=== PATIENT | female | born 1990 | race American Indian/Alaskan Native ===

== ENCOUNTER 2018-07-12 14:13 | Observation (INO) | payer OTHER ==
--- NOTE | 2018-07-12 15:32 | ED PDOC ---
Arrival/HPI - General Chief Complaint: Upper Extremity Problem/Injury Time Seen by Provider: 07/12/18 14:45 Historian: Patient - History of Present Illness Narrative History of Present Illness (Text): 07/12/18 15:29 28yr old female presents today with left forearm pain/erythema and swelling. pt was sent in from urgent care for further evaluation. pt denies fever/chills. pt states yesterday morning she noticed a small area of erythema that has increased in the past 24 hours. pt states she now has swelling along the entire forearm. pt is c/o pain along forearm. pt denies fever/chills. denies trauma or injury. pt states she tried benadryl at home without improvement. no medications taken for pain at home. no other complaints. Past Medical History - Provider Review Nursing Documentation Reviewed: Yes - Travel History Have you recently traveled outside [place] w/in the past 3 mons?: No - Infectious Disease Hx of Infectious Diseases: None - Pulmonary Hx Asthma: Yes - Psychiatric Hx Substance Use: No - Anesthesia Hx Anesthesia: No Hx Anesthesia Reactions: No Hx Malignant Hyperthermia: No Family/Social History - Physician Review Nursing Documentation Reviewed: Yes Family/Social History: Unknown Family HX Smoking Status: Never Smoked Hx Alcohol Use: Yes Frequency of alcohol use: Socially Hx Substance Use: No Allergies/Home Meds Allergies/Adverse Reactions: Allergies latex Adverse Reaction (Verified 07/12/18 14:52) ANGIOEDEMA promethazine [From Phenergan] Adverse Reaction (Verified 07/12/18 14:53) SHORTNESS OF BREATH Sulfa (Sulfonamide Antibiotics) Adverse Reaction (Verified 07/12/18 14:52) ANGIOEDEMA latex Adverse Reaction (Uncoded 07/12/18 14:52) ANGIOEDEMA Home Medications: Home Meds Medication Instructions Recorded Confirmed Lamotrigine [Lamictal Xr] 1 tab PO DAILY 07/12/18 07/12/18 Review of Systems - Review of Systems Constitutional: absent: Fatigue, Fevers Respiratory: absent: SOB, Cough Cardiovascular: absent: Chest Pain, Palpitations Gastrointestinal: absent: Abdominal Pain, Nausea, Vomiting Musculoskeletal: Arthralgias Skin: Rash, Cellulitis Neurological: absent: Headache, Dizziness Psychiatric: absent: Anxiety, Depression Physical Exam Vital Signs Reviewed: Yes Vital Signs Temp Pulse Resp BP Pulse Ox 07/12/18 14:46 98.7 F 95 H 19 119/80 100 Temperature: Afebrile Blood Pressure: Normal Pulse: Regular Respiratory Rate: Normal Appearance: Positive for: Well-Appearing, Non-Toxic, Comfortable Pain Distress: None Mental Status: Positive for: Alert and Oriented X 3 - Systems Exam Head: Present: Atraumatic Mouth: Present: Moist Mucous Membranes Neck: Present: Normal Range of Motion Respiratory/Chest: Present: Clear to Auscultation, Good Air Exchange. No: Respiratory Distress, Accessory Muscle Use Cardiovascular: Present: Regular Rate and Rhythm, Normal S1, S2. No: Murmurs Upper Extremity: Present: Normal ROM, NORMAL PULSES, Tenderness (left forearm; there is erythema noted to the volar and medial aspect of the proximal forearm and distal humerus. full rom of hand, wrist, elbow. sensation and distal pulses intact. cap refill <2. ), Swelling, Erythema (+ warmth and erythema), Neurovascularly Intact, Capillary Refill < 2s Neurological: Present: GCS=15 Skin: Present: Warm, Dry Psychiatric: Present: Alert, Oriented x 3 Medical Decision Making ED Course and Treatment: 07/12/18 15:39 28yr old female with worsening cellulitis to left forearm now with edema to entire forearm. pt was seen and evaluated by dr. yanes cbc: wnl cmp: wnl blood cultures pending xray left forearm; no fracture, duplex left arm; no dvt will start zosyn and admit to med/surg case discussed with dr. pickering; accepts admission impression; cellulitis, arm admit to med/surg - Lab Interpretations Lab Results: 07/12/18 16:26 07/12/18 16:26 Lab Results 07/12/18 16:26: WBC 8.0, RBC 4.49, Hgb 13.5, Hct 38.7, MCV 86.2, MCH 30.1, MCHC 34.9, RDW 12.7, Plt Count 320, MPV 9.2, Gran % 60.0, Lymph % (Auto) 30.7, [place] % (Auto) 6.4 H, Eos % (Auto) 2.6, Baso % (Auto) 0.3, Gran # 4.79, Lymph # (Auto ) 2.5, [place] # (Auto) 0.5, Eos # (Auto) 0.2, Baso # (Auto) 0.02 07/12/18 16:26: Sodium 137, Potassium 4.1, Chloride 108 H, Carbon Dioxide 25, Anion Gap 8 L, BUN 10, Creatinine 0.6 L, Est GFR ( Amer) > 60, Est GFR ( Non-Af Amer) > 60, Random Glucose 84, Calcium 8.6, Total Bilirubin 0.5, AST 24, ALT 27, Alkaline Phosphatase 48, Total Protein 6.9, Albumin 3.7, Globulin 3.2, Albumin/Globulin Ratio 1.2 - RAD Interpretation Radiology Orders: 07/12/18 15:02 FOREARM LEFT [RAD] Stat DUPLEX UPPER EXTRM VEIN LEFT [US] Stat - Medication Orders Current Medication Orders: Diphenhydramine HCl (Benadryl) 25 mg IVP STAT STA Stop: 07/12/18 18:54 Vancomycin HCl (Vancomycin 1gm) 1 gm in 250 mls @ 167 mls/hr IVPB STAT STA PRN Reason: Protocol Stop: 07/12/18 19:54 Discontinued Medications Acetaminophen (Tylenol 325mg Tab) 975 mg PO STAT STA Stop: 07/12/18 15:40 Last Admin: 07/12/18 15:50 Dose: 975 mg MAR Pain/Vitals Document 07/12/18 15:50 SUDO (Rec: 07/12/18 15:50 SUD [id number]) Pain Reassessment Is This A Pain ReAssessment? Yes Presence of Pain Presence of Pain Yes Pain Scale Used Pain Scale Used Numeric Location Left, Right or Bilateral Left Pain Location Body Site Arm Intensity 7 Scale Used Numeric Diphenhydramine HCl (Benadryl) 25 mg PO ONCE ONE Stop: 07/12/18 15:40 Last Admin: 07/12/18 15:50 Dose: 25 mg Piperacillin Sod/Tazobactam Sod (Zosyn 3.375 In Ns 100ml) 100 mls @ 200 mls/hr IVPB STAT STA PRN Reason: Protocol Stop: 07/12/18 18:41 Ketorolac Tromethamine (Toradol) 30 mg IVP STAT STA Stop: 07/12/18 17:14 Disposition/Present on Arrival - Present on Arrival Any Indicators Present on Arrival: No History of DVT/PE: No History of Uncontrolled Diabetes: No Urinary Catheter: No History of Decub. Ulcer: No History Surgical Site Infection Following: None - Disposition Have Diagnosis and Disposition been Completed?: Yes Diagnosis: Cellulitis of arm Disposition: HOSPITALIZED Disposition Time: 16:30 Patient Plan: Observation Condition: FAIR
[2018-07-12 16:33] LABS: BASO # 0.02 K/mm3 (0.0-2.0); BASO % 0.3 % (0.0-3.0); EOS # 0.2 (0.0-0.7); EOS % 2.6 % (1.5-5.0); GRAN # 4.79 (1.4-6.5); HEMOGLOBIN 13.5 g/dL (12.0-16.0); LYMPH # 2.5 (1.2-3.4); LYMPH % 30.7 % (22.0-35.0); MEAN CELL VOLUME 86.2 fl (80.0-105.0); MEAN CORPUSCULAR HEMOGLOBIN 30.1 pg (25.0-35.0); MEAN CORPUSCULAR HGB CONC 34.9 g/dl (31.0-37.0); MEAN PLATELET VOLUME 9.2 fl (7.0-11.0); MONO # 0.5 (0.1-0.6); MONO % 6.4 % (1.0-6.0); RBC 4.49 10^6/uL (3.5-6.1); RED CELL DISTRIBUTION WIDTH 12.7 % (11.5-14.5)
[2018-07-12 16:42] LABS: ALB/GLOB RATIO 1.2 (1.1-1.8); ALBUMIN 3.7 g/dL (3.0-4.8); ALT/SGPT 27 U/L (7-56); AST/SGOT 24 U/L (14-36); BLOOD UREA NITROGEN 10 mg/dL (7-21); CALCIUM 8.6 mg/dL (8.4-10.5); GFR NON-AFRICAN AMERICAN > 60
[2018-07-12] MEDS ORDERED: Piperacillin/Tazobact 3.375 gm 100 ML IVPB STA (18:12)
[2018-07-12] MEDS ORDERED: Vancomycin 1gm in NS 250ml 1 GM/250 ML BAG IVPB STA (18:25)
[2018-07-12] MEDS ORDERED: DiphenhydrAMINE 50 mg/ml Inj IVP STA (18:53)
[2018-07-13 00:41] VITALS: RESP 20; BMI 37.8
[2018-07-13] MEDS ORDERED: DiphenhydrAMINE 50 mg/ml Inj IVP STA (03:54)
--- NOTE | 2018-07-13 08:53 | RAD ---
Date of service: 07/12/2018 PROCEDURE: Radiographs of the Left Forearm HISTORY: Left forearm pain/swelling COMPARISON: None available. TECHNIQUE: Frontal and lateral views obtained. FINDINGS: BONES: Bone alignment and mineralization are normal. There is no acute displaced fracture or bone destruction. JOINT SPACES: Unremarkable. OTHER FINDINGS: None. IMPRESSION: No acute fracture or dislocation.
--- NOTE | 2018-07-13 12:08 | US ---
PROCEDURE: Left upper extremity venous ultrasound HISTORY: Arm pain and swelling. Evaluate for deep venous thrombosis. PHYSICIAN(S): Campos Ho MD. FINDINGS: The visualized leftinternal jugular vein is sonographically normal and compressible. No evidence of obstruction or thrombus is seen. The visualized segments of the left subclavian vein are patent with normal waveforms. No sonographic evidence of obstruction or thrombosis is seen. The visualized deep venous system of the proximal leftupper extremity is sonographically normal and compressible. IMPRESSION: 1. No sonographic evidence for deep venous thrombosis in the visualized segments of the left upper extremity.
[2018-07-13 16:25] VITALS: BP 122/84; PULSE 97; TEMP 98.6; O2SAT 99
[2018-07-13] MEDS ORDERED: Vancomycin 1gm in NS 250ml 1 GM/250 ML BAG IVPB SCH (22:00)
--- NOTE | 2018-07-14 13:43 | HP ---
DATE OF EXAM: 07/12/2018 HISTORY OF PRESENT ILLNESS: This 28-year-old female was examined in the Emergency Room in the presence of her family and case was reviewed in detail with Emergency Room physician, Edgard Singleton, medical doctor. This is a 28-year-old female who presented with left forearm pain, erythema and swelling. The patient had earlier been at an Urgent Care Center. She was noted to have cellulitis and advised to come to [facility] Emergency Room for further evaluation of the above. The patient denied any fever or chills. She stated that the day prior, she noted an area that was small in nature with erythema, that it was increasing over the past 24 hours and now causing the swelling of her entire left forearm. She denied any knowledge of trauma or injury. She did try Benadryl at home without improvement and now is being admitted for further evaluation of the above. 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 She is a social drinker, nonsmoker, non IV drug mis-user who admits to allergies to latex and Phenergan and states she takes Lamictal extended release one tablet daily. REVIEW OF SYSTEMS: CONSTITUTIONAL REVIEW: Denied fever or chills. HEAD REVIEW: Denied headache or seizure. EYE REVIEW: Denied change in visual acuity. EAR REVIEW: Denied hearing loss. THROAT REVIEW: Denied swallowing difficulty. NECK REVIEW: Denied stiffness. CARDIAC REVIEW: Denied chest pain or palpitation. PULMONARY: No cough. No hemoptysis. GI: No hematemesis. No melena. : No dysuria. SKIN: As per HPI. VASCULAR: No claudication. NEUROLOGICAL: No weakness, no stroke. PSYCHIATRIC: No anxiety. No depression. ENDOCRINOLOGIC: No knowledge of diabetes. HEMATOLOGICAL: No knowledge of anemia. FAMILY HISTORY: Noncontributory. PHYSICAL EXAMINATION: VITAL SIGNS: At the time of interview showed temperature 98.7, respirations 19, pulse 95 and blood pressure 119/80 with a pulse ox of 100% room air. HEENT: Head normocephalic, atraumatic. Eyes: No icterus. Ears: Clear. Throat: Noninjected. NECK: Supple. HEART: Regular S1, S2. No pathological rubs, murmurs or gallops. LUNGS: Clear. ABDOMEN: Soft. EXTREMITIES: Left forearm with erythema, warmth and swelling from her wrist to her elbow. Excellent radial pulses. NEUROLOGICAL: Totally intact. Excellent motor strength. No sensory defect. VASCULAR: Legs warm to touch. PSYCHOLOGICAL: Alert and oriented x3. NEUROLOGICAL: Intact. LABORATORY DATA: Sodium 137, K 4.1, chloride 108, bicarb 25, BUN 10, creatinine 0.6. Random blood sugar 84, calcium 8.6, bilirubin 0.5, AST 24, ALT 27, alkaline phosphatase 48. C-reactive protein was elevated at 15.1, normal 0 to 9.9. Sed rate normal, 5. White count 8000, hemoglobin 13.5, hematocrit 38.7 and platelets 320,000. Left forearm x-ray was reviewed. It showed normal mineralization and alignment, no fracture or bony destruction was noted. Left upper extremity venous Doppler was reviewed. It showed no sonographic evidence for DVT in her left upper extremity. IMPRESSION: A 28-year-old female with cellulitis of her left forearm in the absence of trauma. PLAN: The plan will be to administer oral Benadryl, IV vancomycin, IV Zosyn while awaiting blood culture results and giving the patient supportive therapy with left arm elevation and icing to the area. She is ordered to have a regular diet and based on clinical progress, will be readied for discharge in the morning. Greater than 75 minutes was spent in the care management, review of labs, orders and x-rays and discussion of this patient with herself, family and Emergency Room physicians. All questions were answered. Cheyenne Langston MD
--- NOTE | 2018-07-14 14:32 | DS ---
DATE OF EXAM: 07/13/2018 FINAL DIAGNOSIS: Left forearm cellulitis. DISPOSITION: Home. The patient given prescription for Keflex 500 mg p.o. every 6 hours for 10 days. The patient advised to follow up in my office in 1 week or to represent to [facility] ER for any worsening signs and symptoms. SUMMARY: This 28-year-old female who was admitted with a new left forearm cellulitis and was being treated with parenteral antibiotics, was examined at bedside with nurseSofia, registered nurse, and insisted on discharge on 07/13/2018. When I examined this patient in the presence of Liliana parra, I explained to the patient that given her left arm persistent redness and swelling, it was advised that she should continue with IV antibiotics for an additional 24-48 hours to note further improvement before clearing the patient for discharge. However, the patient decided that she was anxious for discharge and was willing to sign AMA. The patient was in need of antibiotics, so she was given prescription for Keflex 500 mg p.o. 4 times daily for 10 days and advised by Liliana parra to follow up in my office within 1 week. At the time of discharge, her temperature was 98.6, respirations 20, pulse 97 and blood pressure 122/84 with a pulse ox of 99%. Hopefully, the patient will be compliant with antibiotic and recommendation that for any further worsening change in signs and symptoms, to present directly to the [facility] ER. All of the above was discussed with the patient and family at bedside by Liliana parra, and all questions were answered. Cheyenne Langston MD
--- NOTE | 2018-07-15 10:34 | PN ---
DATE: 07/14/2018 ADDENDUM I did call the patient today, phone # [phone] to discuss her antibiotic therapy and duration. According to the nursing record, the patient was given 14 tablets supply instead of a 10-day supply, which would be 40 tablets of oral Keflex. I advised the patient to notify me of her pharmacy and phone number to order additional oral Keflex therapy which would be Keflex 500 mg p.o. every 6 hours, total dose #40, not 14, and also advised the patient for any worsening of signs and symptoms to present directly to the closest emergency room, given her abrupt leaving of the [facility] despite recommendation for continued IV antibiotics. Hopefully, she will be compliant with this recommendation. Cheyenne Langston MD
== END 2018-07-13 17:28 | disposition home or self-care (01) ==
LOC: ED 14:13 → ERH 18:27 → 5RSO 21:05
PROVIDERS: ADMIT Internal Medicine; ATTEND Internal Medicine
DX: L03.114 Cellulitis of left upper limb (principal); Z91.040 Latex allergy status
CPT/HCPCS: 73090; 80053; 85025; 85651; 86140; 87040; 93971; 96365; 96375; 96376; 99282; G0378; J1200; J1885; J2543